=== PATIENT | female | born 1955 | race Caucasian/White ===

== ENCOUNTER → 2023-06-22 | Outpatient (CLI) | payer MEDICARE ==
[~2023-06-22] MED LIST: ASPI325T6 PO; NO HOME MEDICATIONS; ROXICODONE 55 MG/TAB PO; SENOKOT S 50 MG1 TAB PO; ULTRAM 50MG TAB50 MG PO
== END ==
LOC: MC.RAD 16:19
DX: Z12.31 Encounter for screening mammogram for malignant neoplasm of breast (principal)

== ENCOUNTER → 2024-02-13 | Outpatient (CLI) | payer MEDICARE | LOC: COL.RAD 07:59 | DX: Z12.2 Encounter for screening for malignant neoplasm of respiratory organs (principal); F17.210 Nicotine dependence, cigarettes, uncomplicated ==